=== PATIENT | male | born 1960 | race Hispanic/Latino ===

== ENCOUNTER 2020-05-02 21:04 | Emergency (ER) | payer OTHER ==
--- NOTE | 2020-05-02 22:38 | Event Note ---
ED Screening Note Date of service: 05/02/20 Time: 22:36 ED Screening Note: pt is a 59 y/o male , 40 pack yr smoker who presents for bilat lower abd pain and constipation x 2 days . states 1 small firm stool in past two days, pt denies fever or chills, no n/v, no hemrrhoids, no retal bleeding, This initial assessment/diagnostic orders/clinical plan/treatment(s) is/are subject to change based on patients health status, clinical progression and re- assessment by fellow clinical providers in the ED. Further treatment and workup at subsequent clinical providers discretion. Patient/guardian urged not to elope from the ED as their condition may be serious if not clinically assessed and managed. Initial orders include: KUB, cbc,
[2020-05-02 22:58] LABS: Basophils # (Auto) 0.1 K/mm3 (0.0-0.1); Basophils % (Auto) 0.7 % (0.0-1.8); Eosinophils # (Auto) 0.1 K/mm3 (0.0-0.4); Eosinophils % (Auto) 0.6 % (0.0-4.3); Hematocrit 47.8 % (35.5-45.6); Hemoglobin 16.2 gm/dl (11.8-15.2); Lymphocytes # (Auto) 2.2 K/mm3 (1.2-5.4); Mean Corpuscular HGB Conc 34 % (32-34); Mean Corpuscular Volume 94 fl (84-94); Platelet Count 238 K/mm3 (140-440); Red Blood Count 5.11 M/mm3 (3.65-5.03); Red Cell Distribution Width 13.6 % (13.2-15.2)
--- NOTE | 2020-05-02 23:18 | XRay Report ---
XR abdomen 1V ap INDICATION / CLINICAL INFORMATION: abd pain constipation. COMPARISON: None available. FINDINGS: TUBES / LINES: None. BOWEL GAS PATTERN: Moderate quantity of stool. Nonobstructive bowel gas pattern. FREE AIR / EXTRALUMINAL GAS: None seen. ADDITIONAL FINDINGS: No significant additional findings. IMPRESSION: 1. Moderate quantity of stool with nonobstructive bowel gas pattern. Signer Name: Booker Perez MD Signed: 05/02/2020 11:13 PM Workstation Name: [id number]
[2020-05-02 23:19] LABS: Alanine Aminotransferase 33 units/L (7-56); Albumin 4.3 g/dL (3.9-5); BUN/Creatinine Ratio 19; Blood Urea Nitrogen 17 mg/dL (9-20); Calcium 9.8 mg/dL (8.4-10.2); Hemolysis Index 58
[2020-05-02 23:32] LABS: Bilirubin,Urine NEG (Negative); Blood,Urine MOD (Negative); Color,Urine Colorless (Yellow); Protein,Urine <15 mg/dL mg/dL (Negative); Urobilinogen,Urine < 2.0 mg/dL (<2.0)
--- NOTE | 2020-05-02 23:46 | Emergency Department Report ---
ED Abdominal Pain HPI - General Chief Complaint: Abdominal Pain Stated Complaint: STOMACH PAIN Time Seen by Provider: 05/02/20 23:40 Source: patient Mode of arrival: Ambulatory Limitations: No Limitations - History of Present Illness Initial Comments: 59-year-old male with a past medical history of anxiety and panic attacks presents to the hospital complaining of abdominal pain since yesterday. Pain is 10/10 intensity, constant, worse with palpation. Patient unable to characterize the pain. He thinks it is secondary to constipation. Patient has had a very minimal/small amount of hard stools during bowel movement for the last several days. He denies nausea, vomiting, or fever. Patient does complain of straining with urination and having urgency like he has to pee however, no urine comes out. He also states a small amount of urine comes in at a time. Patient took [id number] stool softener and prune juice without improvement. He has had similar symptoms secondary to constipation the past ever, today it is more severe. History of bilateral inguinal hernia repair surgery in back surgery. Patient does take several medication include benzodiazepines, hydroxyzine, and Seroquel but does not appear to take narcotics. - Related Data Previous Rx's Medication Instructions Recorded Last Taken Type Docusate Sodium [Colace] 100 mg PO BID PRN #20 capsule 05/03/20 Unknown Rx HYDROcodone/APAP 5-325 [[place] 1 each PO Q6HR PRN #15 tablet 05/03/20 Unknown Rx 5/325] Ketorolac [Toradol] 10 mg PO Q6H PRN #20 tablet 05/03/20 Unknown Rx Ondansetron [Zofran Odt] 4 mg PO Q8HR PRN #20 tab.rapdis 05/03/20 Unknown Rx Polyethylene Glycol 3350 [Miralax] 17 gm PO DAILY PRN #7 dose 05/03/20 Unknown Rx Tamsulosin [Flomax] 0.4 mg PO QDAY #14 cap 05/03/20 Unknown Rx Allergies Allergy/AdvReac Type Severity Reaction Status Date / Time No Known Allergies Allergy Unverified 05/02/20 22:20 ED Review of Systems ROS: Stated complaint: STOMACH PAIN Other details as noted in HPI Comment: All other systems reviewed and negative ED Past Medical Hx - Past Medical History Previous Medical History?: Yes Hx Psychiatric Treatment: Yes (Anxiety. Panic Attacks) - Surgical History Past Surgical History?: Yes Additional Surgical History: Bilateral inguinal hernia. Back surgery - Social History Smoking Status: Current Every Day Smoker Substance Use Type: None - Medications Home Medications: Home Medications Medication Instructions Recorded Confirmed Last Taken Type Docusate Sodium [Colace] 100 mg PO BID PRN #20 capsule 05/03/20 Unknown Rx HYDROcodone/APAP 5-325 [[place] 1 each PO Q6HR PRN #15 tablet 05/03/20 Unknown Rx 5/325] Ketorolac [Toradol] 10 mg PO Q6H PRN #20 tablet 05/03/20 Unknown Rx Ondansetron [Zofran Odt] 4 mg PO Q8HR PRN #20 tab.rapdis 05/03/20 Unknown Rx Polyethylene Glycol 3350 [Miralax] 17 gm PO DAILY PRN #7 dose 05/03/20 Unknown Rx Tamsulosin [Flomax] 0.4 mg PO QDAY #14 cap 05/03/20 Unknown Rx ED Physical Exam - General Limitations: No Limitations - Other Other exam information: General: No acute distress Head: Atraumatic Eyes: normal appearance ENT: Moist mucous membranes Neck: Normal appearance, no midline tenderness Chest: Clear to auscultation bilaterally CV: Regular rate and rhythm Abdomen: Soft, normal bowel sounds, generalized abdominal tenderness, nondistended, no rebound or guarding Back: Normal inspection Extremity: Normal inspection, full range of motion Neuro: Alert O x 3, no facial asymmetry, speech clear, no gross motor sensory deficit Psych: Appropriate behavior Skin: No rash ED Course Vital Signs 05/02/20 05/02/20 22:01 23:50 Temperature 97.6 F Pulse Rate 76 Respiratory 16 18 Rate Blood Pressure 184/99 O2 Sat by Pulse 95 Oximetry - Reevaluation(s) Reevaluation #1: 05/03/20 01:16 Patient complains now of left lower quadrant pain radiating to the back. States he just recently urinated. Nurse instructed to perform postvoid residual 05/03/20 01:31 Points of void residual bladder scan revealed 33 mL of urine in the bladder therefore patient does not appear to have signs of obstruction and urine retention ED Medical Decision Making - Lab Data Result diagrams: 05/02/20 22:30 05/02/20 22:30 Lab Results 05/02/20 05/02/20 05/02/20 Range/Units 22:30 22:30 23:02 WBC 11.6 H (4.5-11.0) K/mm3 RBC 5.11 H (3.65-5.03) M/mm3 Hgb 16.2 H (11.8-15.2) gm/dl Hct 47.8 H (35.5-45.6) % MCV 94 (84-94) fl MCH 32 (28-32) pg MCHC 34 (32-34) % RDW 13.6 (13.2-15.2) % Plt Count 238 (140-440) K/mm3 Lymph % (Auto) 19.0 (13.4-35.0) % [place] % (Auto) 9.0 H (0.0-7.3) % Eos % (Auto) 0.6 (0.0-4.3) % Baso % (Auto) 0.7 (0.0-1.8) % Lymph # (Auto) 2.2 (1.2-5.4) K/mm3 [place] # (Auto) 1.0 H (0.0-0.8) K/mm3 Eos # (Auto) 0.1 (0.0-0.4) K/mm3 Baso # (Auto) 0.1 (0.0-0.1) K/mm3 Seg Neutrophils % 70.7 H (40.0-70.0) % Seg Neutrophils # 8.2 H (1.8-7.7) K/mm3 Sodium 139 (137-145) mmol/L Potassium 5.3 H (3.6-5.0) mmol/L Chloride 103.6 (98-107) mmol/L Carbon Dioxide 24 (22-30) mmol/L Anion Gap 17 mmol/L BUN 17 (9-20) mg/dL Creatinine 0.9 (0.8-1.3) mg/dL Estimated GFR > 60 ml/min BUN/Creatinine Ratio 19 % Glucose 105 H (75-100) mg/dL Calcium 9.8 (8.4-10.2) mg/dL Total Bilirubin 0.50 (0.1-1.2) mg/dL AST 25 (5-40) units/L ALT 33 (7-56) units/L Alkaline Phosphatase 132 H (35-129) units/L Total Protein 6.8 (6.3-8.2) g/dL Albumin 4.3 (3.9-5) g/dL Albumin/Globulin Ratio 1.7 % Lipase 12 L (13-60) units/L Urine Color Colorless (Yellow) Urine Turbidity Clear (Clear) Urine pH 5.0 (5.0-7.0) Ur Specific [place] 1.003 (1.003-1.030) Urine Protein <15 mg/dl (Negative) mg/dL Urine Glucose (UA) Neg (Negative) mg/dL Urine Ketones Neg (Negative) mg/dL Urine Blood Mod (Negative) Urine Nitrite Neg (Negative) Urine Bilirubin Neg (Negative) Urine Urobilinogen < 2.0 (<2.0) mg/dL Ur Leukocyte Esterase Neg (Negative) Urine WBC (Auto) 2.0 (0.0-6.0) /HPF Urine RBC (Auto) 1.0 (0.0-6.0) /HPF - Medical Decision Making Patient presents to the hospital complaints of both bowel symptoms i.e. constipation as well as urinary symptoms. CT confirms 2 mm stone at the UVJ with mild left-sided hydronephrosis. No signs of UTI or renal failure. Abdominal x-ray showed moderate amount of stool however, no comments about constipation remain on CT abdomen pelvis. Patient provided Toradol IV in the ED and cannot receive narcotics at this time since he is driving home. He will be discharged on additional medications for pain relief due to current kidney stone as well as Flomax. Outpatient follow-up with urology will be encouraged. Straining of urine will be recommend Patient was provided 1 dose of p.o. Kayexalate prior to discharge for mild hyperkalemia and also to treat his constipation symptoms Critical Care Time: No Critical care attestation.: If time is entered above; I have spent that time in minutes in the direct care of this critically ill patient, excluding procedure time. ED Disposition Clinical Impression: Renal colic on left side, Constipation Disposition: DC-01 TO HOME OR SELFCARE Is pt being admited?: No Does the pt Need Aspirin: No Condition: Stable Instructions: Constipation, Adult, [id number], Renal Colic Additional Instructions: Take the medication as prescribed. Follow-up with your doctor or doctor/clinic provided. Return if symptoms worsen as indicated by your discharge i nstructions. Prescriptions: Docusate Sodium [Colace] 100 mg PO BID PRN #20 capsule PRN Reason: Constipation Tamsulosin [Flomax] 0.4 mg PO QDAY #14 cap Polyethylene Glycol 3350 [Miralax] 17 gm PO DAILY PRN #7 dose PRN Reason: Constipation HYDROcodone/APAP 5-325 [[place] 5/325] 1 each PO Q6HR PRN #15 tablet PRN Reason: Pain Ketorolac [Toradol] 10 mg PO Q6H PRN #20 tablet PRN Reason: Pain Ondansetron [Zofran Odt] 4 mg PO Q8HR PRN #20 tab.rapdis PRN Reason: Nausea And Vomiting Referrals: KAIT FAM MD [Primary Care Provider] - 3-5 Days DARBY STRONG MD [Staff Physician] - 3-5 Days (Urologist) Forms: Work/School Release Form(ED) Time of Disposition: 01:34
--- NOTE | 2020-05-03 01:00 | Cat Scan Report ---
CT abdomen pelvis w con INDICATION: Pt complains of "Generalized" abd pain with constipation x 1 day. COMPARISON: None TECHNIQUE: Abdominal and pelvic CT exam performed. All CT scans at this location are performed using CT dose reduction for ALARA by means of automated exposure control. FINDINGS: CT ABDOMEN and PELVIS: Lung Bases: There are scattered hypoattenuating lesions in the liver with the largest seen in hepatic segment 7. These demonstrate peripheral nodular discontinuous enhancement consistent with hemangioma s. Liver: No significant abnormality. Biliary: No significant abnormality. Spleen: No significant abnormality. Pancreas: No significant abnormality. Adrenals: No significant abnormality. Kidneys: 2 mm stone in the left ureterovesical junction resulting in mild hydroureteronephrosis. Mild left perinephric stranding. Mildly dilated left . Subcentimeter right interpolar hypoattenuating lesion most likely represents a cyst. Lymphatics: No lymphadenopathy. Vasculature: No significant abnormality. Bowel: No significant abnormality. Normal appendix. Pelvis: No significant abnormality. Osseous Structures: No aggressive osseous lesion. Additional Findings: None IMPRESSION: 1. 2 mm stone at the left UVJ resulting in mild hydronephrosis. Signer Name: Booker Perez MD Signed: 05/03/2020 12:56 AM Workstation Name: [id number]
[2020-05-03] MEDS ORDERED: KETOROLAC 30 MG/1 ML INJ IV ONE (01:16)
[2020-05-03] MEDS ORDERED: SODIUM POLYSTYRENE 15 GM/60 ML ORAL LIQD PO ONE (01:33)
[2020-05-03 01:42] VITALS: BP 166/87
== END 2020-05-03 01:51 | disposition home or self-care (01) ==
LOC: ED 21:04
DX: N23 Unspecified renal colic (principal); K59.00 Constipation, unspecified; F41.9 Anxiety disorder, unspecified; F17.200 Nicotine dependence, unspecified, uncomplicated; Z98.890 Other specified postprocedural states; Z79.899 Other long term (current) drug therapy
CPT/HCPCS: 36415; 74018; 74177; 80053; 81001; 83690; 85025; 96374; 99284; J1885; Q9967